=== PATIENT | female | born 1950 | race Caucasian/White ===

== ENCOUNTER 2017-01-29 12:34 | Emergency (ER) | payer OTHER, MEDICARE, BC ==
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
[2017-01-29 13:54] VITALS: BP 140/70
== END 2017-01-29 13:55 | disposition home or self-care (01) ==
LOC: ER 12:34
DX: S16.1XXA Strain of muscle, fascia and tendon at neck level, initial encounter (principal); M54.2 Cervicalgia; V49.50XA Passenger injured in collision with unspecified motor vehicles in traffic accident, initial encounter
CPT/HCPCS: 99283